=== PATIENT | male | born 1985 | race Caucasian/White ===

== ENCOUNTER 2018-05-05 23:09 | Emergency (ER) | payer OTHER ==
[~2018-05-05] VITALS: Ht 167.6 cm; Wt 77.1 kg
[2018-05-05 23:50] LABS: ABSOLUTE BASOPHILS 0.1 thou/uL (0.0-0.2); ABSOLUTE EOSINOPHILS 0.4 thou/uL (0.0-0.7); ABSOLUTE LYMPHOCYTES 2.9 thou/uL (0.8-5.3); ABSOLUTE NEUTROPHILS 4.7 thou/uL (1.6-8.1); BASOPHILS 0.9 %; EOSINOPHILS 4.4 %; HEMATOCRIT 45.6 % (42.0-52.0); HEMOGLOBIN 15.6 gm/dL (14.0-18.0); LYMPHOCYTES 32.4 %; MCHC 34.3 g/dL (28.0-37.0); MCV 90.3 fL (80.0-100.0); MONOCYTES 10.4 %; NUCLEATED RBCS 0 /100WBC; PLATELET COUNT* 311 thou/uL (150-400); POLYS 51.9 %; RBC 5.04 mil/uL (4.50-6.00); RDW-CV 13.1 % (10.5-14.5); WBC 9.1 thou/uL (4.0-11.0)
[2018-05-05 23:57] LABS: CALCIUM 8.8 mg/dL (8.5-10.1); POTASSIUM 3.4 mmol/L (3.5-5.1)
[2018-05-06 00:02] LABS: ALBUMIN 3.7 g/dL (3.4-5.0); TOTAL BILIRUBIN 0.2 mg/dL (<0.1-1.0); TOTAL PROTEIN 7.5 g/dL (6.4-8.2)
[2018-05-06] MEDS ORDERED: PHENERGAN 25 MG25 M1 PO (00:24)
[2018-05-06 00:35] VITALS: BP 147/81
== END 2018-05-06 00:53 | disposition home or self-care (01) ==
LOC: M.ERS 23:09
PROVIDERS: Emergency Medicine
DX: R19.7 Diarrhea, unspecified (principal); R11.2 Nausea with vomiting, unspecified

== ENCOUNTER 2018-06-19 09:33 | Emergency (ER) | payer OTHER ==
[~2018-06-19] VITALS: Ht 170.2 cm; Wt 81.7 kg
[~2018-06-19 09:33] MED LIST: PHENERGAN 25 MG25 M1 PO
[2018-06-19] MEDS ORDERED: KEFLEX500 M1 PO (10:22)
[2018-06-19 10:27] VITALS: BP 147/90
== END 2018-06-19 10:28 | disposition home or self-care (01) ==
LOC: M.ERS 09:33
DX: J02.9 Acute pharyngitis, unspecified (principal)

== ENCOUNTER 2018-09-09 13:17 | Emergency (ER) | payer OTHER ==
[~2018-09-09] VITALS: Ht 167.6 cm; Wt 81.7 kg
[~2018-09-09 13:17] MED LIST changes: +KEFLEX500 M1 PO
[2018-09-09] MEDS ORDERED: DOXYCYCLINE 10100 MG PO (13:54)
[2018-09-09 14:03] VITALS: BP 151/75
== END 2018-09-09 14:04 | disposition home or self-care (01) ==
LOC: M.ERS 13:17
DX: L03.116 Cellulitis of left lower limb (principal); F17.200 Nicotine dependence, unspecified, uncomplicated

== ENCOUNTER 2018-11-07 18:40 | Emergency (ER) | payer OTHER ==
[~2018-11-07] VITALS: Ht 170.2 cm; Wt 81.7 kg
[~2018-11-07 18:40] MED LIST changes: +DOXYCYCLINE 10100 MG PO
[2018-11-07] MEDS ORDERED: NABUMETONE 750750 M1 PO (21:08)
[2018-11-07 21:19] VITALS: BP 151/87
== END 2018-11-07 21:20 | disposition home or self-care (01) ==
LOC: M.ERS 18:40
DX: S80.02XA Contusion of left knee, initial encounter (principal); F17.200 Nicotine dependence, unspecified, uncomplicated; W18.39XA Other fall on same level, initial encounter; Y92.89 Other specified places as the place of occurrence of the external cause; Y93.67 Activity, basketball; Y99.8 Other external cause status

== ENCOUNTER 2019-02-09 15:12 | Emergency (ER) | payer OTHER ==
[~2019-02-09] VITALS: Ht 167.6 cm; Wt 81.7 kg
[~2019-02-09 15:12] MED LIST changes: +NABUMETONE 750750 M1 PO
[2019-02-09 15:29] LABS: URINE BILIRUBIN NEGATIVE (Negative); URINE BLOOD NEGATIVE (Negative); URINE CLARITY CLEAR; URINE COLOR YELLOW; URINE GLUCOSE-RANDOM NEGATIVE (Negative); URINE KETONES NEGATIVE (Negative); URINE LEUKOCYTES-REFLEX NEGATIVE (Negative); URINE NITRITE-REFLEX NEGATIVE (Negative); URINE PROTEIN NEGATIVE (Negative); URINE SPECIFIC GRAVITY 1.025 (1.005-1.030); URINE UROBILINOGEN 0.2 E.U./dl (0.2-1.0)
[2019-02-09 15:40] LABS: ABSOLUTE BASOPHILS 0.1 thou/uL (0.0-0.2); ABSOLUTE EOSINOPHILS 0.4 thou/uL (0.0-0.7); ABSOLUTE LYMPHOCYTES 2.4 thou/uL (0.8-5.3); ABSOLUTE MONOCYTES 0.8 thou/uL (0.0-1.2); ABSOLUTE NEUTROPHILS 6.5 thou/uL (1.6-8.1); BASOPHILS 1.3 %; HEMATOCRIT 47.6 % (42.0-52.0); HEMOGLOBIN 16.8 gm/dL (14.0-18.0); LYMPHOCYTES 23.7 %; MCH 31.5 pg (26.0-34.0); MCHC 35.2 g/dL (28.0-37.0); MCV 89.4 fL (80.0-100.0); MONOCYTES 7.9 %; MPV 8.1 fl. (7.2-11.1); NUCLEATED RBCS 0 /100WBC; PLATELET COUNT* 363 thou/uL (150-400); POLYS 63.1 %; RBC 5.33 mil/uL (4.50-6.00); RDW-CV 13.7 % (10.5-14.5); WBC 10.3 thou/uL (4.0-11.0)
[2019-02-09 15:56] LABS: ANION GAP 8 mmol/L (7-16); BUN 11 mg/dL (7-18); CALCIUM 9.2 mg/dL (8.5-10.1); CHLORIDE 102 mmol/L (98-107); CO2 30 mmol/L (21-32); GLUCOSE 101 mg/dL (70-99); POTASSIUM 3.7 mmol/L (3.5-5.1); SODIUM 140 mmol/L (136-145)
[2019-02-09 16:00] LABS: ALBUMIN 4.2 g/dL (3.4-5.0); ALKALINE PHOSPHATASE 131 U/L (46-116); LIPASE 189 U/L (73-393); SGOT 21 U/L (15-37); SGPT 49 U/L (30-65); TOTAL BILIRUBIN 0.3 mg/dL (<0.1-1.0); TOTAL PROTEIN 8.4 g/dL (6.4-8.2); TROPONIN-I LEVEL <0.06 ng/mL (<0.06)
[2019-02-09] MEDS ORDERED: FAMOTIDINE 20 M20 MG PO (17:10)
[2019-02-09] MEDS ORDERED: ONDANSETRON HCL4 M2 PO (17:10)
[2019-02-09 17:18] VITALS: BP 125/79
--- NOTE | 2019-02-10 11:17 | EKG ---
[place] [address] ELECTROCARDIOGRAM REPORT Name: JAYLIN MANCILLA [facility] [place] [id number] Admission: 02/09/19 Attend Phys: Discharge: 02/09/19 Date of : 89 Report #: [id number] THIS REPORT FOR: //name// [facility] ED Test Date: 2019-02-09 Test Time: 15:40:58 Pat Name: JAYLIN MANCILLA Department: Room: Gender: M [employer]ician: DAFNE : 1985 Requested By: Amee Brand Order Number: [id number] MD: Herminio Laboy Measurements Intervals [place] Rate: 74 P: 10 [place]: 150 QRS: 69 QRSD: 105 T: 31 QT: 376 QTc: 418 Interpretive Statements Sinus rhythm No previous ECG available for comparison Electronically Signed On 02-10-2019 11:17:12 CDT by Herminio Laboy [email or web address] <ELECTRONICALLY SIGNED> By: Herminio Laboy MD, [facility] 02/10/19 1117 1540 1540 Herminio Laboy MD, FACC /EPI
== END 2019-02-09 17:19 | disposition home or self-care (01) ==
LOC: M.ERS 15:12
PROVIDERS: Nurse Practitioner Family
DX: R10.13 Epigastric pain (principal); R11.2 Nausea with vomiting, unspecified

== ENCOUNTER 2019-05-12 00:28 | Emergency (ER) | payer OTHER ==
[~2019-05-12] VITALS: Ht 167.6 cm; Wt 86.2 kg
[~2019-05-12 00:28] MED LIST changes: +FAMOTIDINE 20 M20 MG PO; +ONDANSETRON HCL4 M2 PO
[2019-05-12] MEDS ORDERED: PREDNISONE50 MG PO (01:11)
[2019-05-12] MEDS ORDERED: IBUPROFEN 800800 M1 PO (01:11)
[2019-05-12] MEDS ORDERED: FLEXERIL PO (01:11)
[2019-05-12] MEDS ORDERED: NORCO 5-325 TA1 EAC1 PO (01:11)
[2019-05-12 01:51] VITALS: BP 164/103
== END 2019-05-12 01:51 | disposition home or self-care (01) ==
LOC: M.ERS 00:28
DX: M54.42 Lumbago with sciatica, left side (principal); R20.0 Anesthesia of skin

== ENCOUNTER 2019-12-08 12:39 | Emergency (ER) | payer OTHER ==
[~2019-12-08] VITALS: Ht 167.6 cm; Wt 77.1 kg
[~2019-12-08 12:39] MED LIST changes: +FLEXERIL PO; +IBUPROFEN 800800 M1 PO; +NORCO 5-325 TA1 EAC1 PO; +PREDNISONE50 MG PO
[2019-12-08] MEDS ORDERED: TYLENOL WITH CO1 TA1 PO (13:18)
[2019-12-08] MEDS ORDERED: NAPROSYN500 MG PO (13:18)
[2019-12-08 14:17] VITALS: BP 144/103
== END 2019-12-08 14:20 | disposition home or self-care (01) ==
LOC: M.ERS 12:39
DX: M25.511 Pain in right shoulder (principal)

== ENCOUNTER 2019-12-23 00:20 | Emergency (ER) | payer OTHER ==
[~2019-12-23] VITALS: Ht 167.6 cm; Wt 77.1 kg
[~2019-12-23 00:20] MED LIST changes: +NAPROSYN500 MG PO; +TYLENOL WITH CO1 TA1 PO
[2019-12-23] MEDS ORDERED: KEFLEX500 M1 PO (01:50)
[2019-12-23] MEDS ORDERED: ERYTHROMYCIN E3.5 G3 OPHTHALMIC (01:50)
[2019-12-23 02:01] VITALS: BP 148/97
== END 2019-12-23 02:01 | disposition home or self-care (01) ==
LOC: M.ERS 00:20
DX: H00.014 Hordeolum externum left upper eyelid (principal)

== ENCOUNTER 2020-01-10 11:47 | Emergency (ER) | payer OTHER ==
[~2020-01-10] VITALS: Ht 170.2 cm; Wt 77.1 kg
[~2020-01-10 11:47] MED LIST changes: +ERYTHROMYCIN E3.5 G3 OPHTHALMIC
[2020-01-10] MEDS ORDERED: TRAMADOL 50 MG50 MG PO (12:21)
[2020-01-10 12:45] VITALS: BP 154/116
== END 2020-01-10 12:45 | disposition home or self-care (01) ==
LOC: M.ERS 11:47
DX: S80.01XA Contusion of right knee, initial encounter (principal); W10.8XXA Fall (on) (from) other stairs and steps, initial encounter; Y93.89 Activity, other specified; Y92.89 Other specified places as the place of occurrence of the external cause; Y99.8 Other external cause status

== ENCOUNTER 2020-02-06 00:20 | Emergency (ER) | payer OTHER ==
[~2020-02-06] VITALS: Ht 167.6 cm; Wt 79.4 kg
[~2020-02-06 00:20] MED LIST changes: +TRAMADOL 50 MG50 MG PO
[2020-02-06] MEDS ORDERED: NAPROSYN500 MG PO (02:11)
[2020-02-06] MEDS ORDERED: HYDROCODON-ACE1 EAC7 PO (02:11)
[2020-02-06] MEDS ORDERED: FLEXERIL PO (02:11)
[2020-02-06 02:31] VITALS: BP 145/96
== END 2020-02-06 02:31 | disposition home or self-care (01) ==
LOC: M.ERS 00:20
DX: M25.511 Pain in right shoulder (principal)

== ENCOUNTER 2020-12-09 23:17 | Emergency (ER) | payer OTHER ==
[~2020-12-09] VITALS: Ht 167.6 cm; Wt 86.2 kg
[~2020-12-09 23:17] MED LIST changes: +HYDROCODON-ACE1 EAC7 PO
[2020-12-10 00:30] VITALS: BP 148/90
== END 2020-12-10 00:30 | disposition left against medical advice (07) ==
LOC: M.ERS 23:17
DX: Z53.21 Procedure and treatment not carried out due to patient leaving prior to being seen by health care provider (principal)

== ENCOUNTER 2021-02-16 15:46 | Emergency (ER) | payer OTHER ==
[~2021-02-16] VITALS: Ht 170.2 cm; Wt 79.4 kg
[2021-02-16] MEDS ORDERED: CEPHALEXIN500 MG PO (16:32)
[2021-02-16] MEDS ORDERED: BACTRIM DS TAB1 EAC1 PO (16:32)
[2021-02-16 16:50] VITALS: BP 179/95
== END 2021-02-16 16:59 | disposition left against medical advice (07) ==
LOC: M.ERS 15:46
DX: M65.88 Other synovitis and tenosynovitis, other site (principal)